=== PATIENT | female | born 1995 | race Caucasian/White ===

== ENCOUNTER 2018-06-09 12:58 | Outpatient (CLI) | payer BC | END 2018-06-09 15:10 | disposition home or self-care (01) | LOC: OBT 12:58 → L-D 12:58 → OBT 15:10 | DX: O36.8130 Decreased fetal movements, third trimester, not applicable or unspecified (principal); Z3A.36 36 weeks gestation of pregnancy | CPT/HCPCS: 76818 ==

== ENCOUNTER 2018-07-02 19:55 | Inpatient (IN) | payer BC ==
[2018-07-02] MEDS ORDERED: IBUPROFEN 600 MG TAB PO (20:30)
[2018-07-02] MEDS ORDERED: OXYTOCIN 30 UNITS/LR 500 ML IV (20:30)
[2018-07-02] MEDS ORDERED: BUTORPHANOL 2 MG INJ IV (20:30)
[2018-07-02] MEDS ORDERED: LIDOCAINE 1% (MPF) 30 ML INJ INJ (20:30)
[2018-07-02] MEDS: LACTATED RINGER'S 1,000 ML IV (20:39)
[2018-07-02 20:50] LABS: ADD MAN DIFF? NO
[2018-07-02 20:53] LABS: BASOPHIL # 0.1 10^3/ul (0.0-0.1); BASOPHILS % 0.6 % (0.0-2.0); EOSINOPHILS # 0.1 10^3/ul (0.0-0.5); HEMATOCRIT 36.4 % (37.0-47.0); HEMOGLOBIN 12.1 g/dl (12.0-16.0); LYMPHOCYTES # 1.5 10^3/ul (0.8-2.9); LYMPHOCYTES % 17.2 % (15.0-51.0); MEAN CORPUSCULAR HEMOGLOBIN 28.3 pg (29.0-33.0); MEAN CORPUSCULAR HGB CONC 33.2 g/dl (32.0-37.0); MEAN PLATELET VOLUME 10.9 fl (7.4-10.4); MONOCYTE # 0.6 10^3/ul (0.3-0.9); MONOCYTES % 6.8 % (0.0-11.0); NEUTROPHIL # 6.6 10^3/ul (1.6-7.5); NEUTROPHILS % 73.4 % (39.0-77.0); PLATELET COUNT 319 10^3/UL (140-415); RED BLOOD COUNT 4.28 10^6/ul (4.20-5.40); RED CELL DISTRIBUTION WIDTH 13.3 % (11.5-14.5)
[2018-07-02 21:12] LABS: INR 0.97
[2018-07-02 21:13] LABS: PARTIAL THROMBOPLASTIN TIME 30.9 Sec (23.0-35.0)
[2018-07-02 21:38] LABS: HEPATITIS B SURFACE ANTIGEN NEGATIVE (NEGATIVE)
[2018-07-02] MEDS ORDERED: MISOPROSTOL 100 MCG TAB VAG (22:00)
[2018-07-02] MEDS: MISOPROSTOL 50 MCG CAPSULE PO (22:33)
[2018-07-02] MEDS: AMPICILLIN 2 GM/NS (PMX) 100 ML IV (22:33)
[2018-07-03] MEDS ORDERED: MISOPROSTOL 50 MCG CAPSULE PO (01:00)
[2018-07-03] MEDS: AMPICILLIN 1 GM/NS (PMX) 50 ML IV ×6 (02:40→20:30)
[2018-07-03] MEDS: MISOPROSTOL 50 MCG CAPSULE PO ×6 (02:40→21:00)
[2018-07-03] MEDS: LACTATED RINGER'S 1,000 ML IV ×4 (05:30→20:06)
[2018-07-03] MEDS ORDERED: FENTAnyl 2MCG/ML-ROPIV 0.2% 100 ML (09:25)
[2018-07-03] MEDS ORDERED: HYDROmorphONE 1 MG/5 ML IV SYRINGE IV ×3 (10:00)
[2018-07-03] MEDS ORDERED: KETOROLAC 30 MG INJ IV ×2 (10:00→19:00)
[2018-07-03] MEDS ORDERED: DIPHENHYDRAMINE 50 MG INJ IV ×2 (10:00→19:00)
[2018-07-03] MEDS ORDERED: ONDANSETRON 4 MG INJ IV ×2 (10:00→19:00)
[2018-07-03] MEDS ORDERED: FENTAnyl 50 MCG/ML VIAL IV ×2 (10:00)
[2018-07-03] MEDS: OXYTOCIN 30 UNITS/LR 500 ML IV ×3 (10:18→22:19)
[2018-07-03 18:15] LABS: RAPID PLASMA REAGIN NONREACTIVE (NR)
[2018-07-03] MEDS ORDERED: HYDROmorphONE 0.5 MG/0.5 ML SYG IV ×2 (19:00)
[2018-07-03] MEDS ORDERED: ZOLPIDEM 5 MG TAB PO (19:00)
[2018-07-03] MEDS ORDERED: NALOXONE (0.4 MG/ML) INJ IV (19:00)
[2018-07-03] MEDS: FENTAnyl 2MCG/ML-ROPIV 0.2% 100 ML BAG EPI (19:09)
[2018-07-03] MEDS ORDERED: LIDOCAINE 1% (MPF) 30 ML INJ (20:03)
[2018-07-03] MEDS ORDERED: MINERAL OIL LIGHT 10 ML VIAL TOP (22:00)
[2018-07-03] MEDS: METHYLERGONOVINE 0.2 MG INJ IM (22:15)
[2018-07-03] MEDS: MISOPROSTOL 200 MCG TAB PR (22:16)
[2018-07-03] MEDS: CARBOPROST 250 MCG INJ IM (22:17)
[2018-07-04] MEDS ORDERED: HYDROCODONE/APAP (5/325) TAB PO (01:30)
[2018-07-04] MEDS ORDERED: OXYTOCIN 30 UNITS/LR 500 ML IV (01:30)
[2018-07-04] MEDS ORDERED: CARBOPROST 250 MCG INJ IM (01:30)
[2018-07-04] MEDS ORDERED: METHYLERGONOVINE 0.2 MG INJ IM (01:30)
[2018-07-04] MEDS ORDERED: MISOPROSTOL 200 MCG TAB PR (01:30)
[2018-07-04] MEDS ORDERED: ACETAMINOPHEN 325 MG TAB PO (01:30)
[2018-07-04] MEDS: LACTATED RINGER'S 1,000 ML IV* (02:30)
[2018-07-04] MEDS: WITCH HAZEL/GLYCERIN PAD PR (02:30)
[2018-07-04] MEDS: BENZOCAINE 20% 56 ML SPRAY TOP (02:31)
[2018-07-04] MEDS: DIBUCAINE 1% 30 GM OINT TOP (02:31)
[2018-07-04] MEDS: IBUPROFEN 600 MG TAB PO ×4 (05:35→23:46)
[2018-07-04 07:54] LABS: ADD MAN DIFF? NO
[2018-07-04 07:59] LABS: WHITE BLOOD COUNT 15.3 10^3/ul (4.8-10.8)
[2018-07-04 07:59] LABS: BASOPHILS % 0.2 % (0.0-2.0); EOSINOPHILS % 0.1 % (0.0-7.0); HEMATOCRIT 38.4 % (37.0-47.0); HEMOGLOBIN 12.7 g/dl (12.0-16.0); MEAN CORPUSCULAR HEMOGLOBIN 28.1 pg (29.0-33.0); MEAN CORPUSCULAR HGB CONC 33.1 g/dl (32.0-37.0); MONOCYTE # 1.3 10^3/ul (0.3-0.9); MONOCYTES % 8.4 % (0.0-11.0); NEUTROPHIL # 11.9 10^3/ul (1.6-7.5); NEUTROPHILS % 77.8 % (39.0-77.0); PLATELET COUNT 280 10^3/UL (140-415); RED BLOOD COUNT 4.52 10^6/ul (4.20-5.40); RED CELL DISTRIBUTION WIDTH 13.5 % (11.5-14.5)
[2018-07-04] MEDS: PRENATAL VITAMIN PO (08:57)
[2018-07-04] MEDS: SENNA/DOCUSATE NA (8.6MG/50MG) TAB PO ×2 (09:00→21:00)
[2018-07-05] MEDS: IBUPROFEN 600 MG TAB PO ×2 (05:44→12:28)
[2018-07-05] MEDS: DIPHTH/TET/ACEL PERTUSS (ADULT) 0.5 ML VIAL IM* (09:00)
[2018-07-05] MEDS: SENNA/DOCUSATE NA (8.6MG/50MG) TAB PO (09:00)
[2018-07-05] MEDS: PRENATAL VITAMIN PO (09:16)
[2018-07-05 10:08] LABS: ADD MAN DIFF? NO
[2018-07-05 10:10] LABS: BASOPHILS % 0.5 % (0.0-2.0); EOSINOPHILS # 0.2 10^3/ul (0.0-0.5); EOSINOPHILS % 1.7 % (0.0-7.0); HEMATOCRIT 35.6 % (37.0-47.0); HEMOGLOBIN 11.5 g/dl (12.0-16.0); LYMPHOCYTES % 22.3 % (15.0-51.0); MEAN CORPUSCULAR HEMOGLOBIN 27.8 pg (29.0-33.0); MEAN CORPUSCULAR HGB CONC 32.3 g/dl (32.0-37.0); MEAN PLATELET VOLUME 11.2 fl (7.4-10.4); MONOCYTE # 0.7 10^3/ul (0.3-0.9); MONOCYTES % 8.1 % (0.0-11.0); NEUTROPHIL # 5.9 10^3/ul (1.6-7.5); NEUTROPHILS % 66.5 % (39.0-77.0); PLATELET COUNT 290 10^3/UL (140-415); RED BLOOD COUNT 4.14 10^6/ul (4.20-5.40); RED CELL DISTRIBUTION WIDTH 13.9 % (11.5-14.5)
[2018-07-05 10:10] LABS: WHITE BLOOD COUNT 8.8 10^3/ul (4.8-10.8)
== END 2018-07-05 18:34 | disposition home or self-care (01) | DRG 807 ==
LOC: PP1 07-04 00:35 → L-D 19:55
PROVIDERS: Obstetrics & Gynecology
PROC: 10E0XZZ Delivery of Products of Conception, External Approach (ICD-10-PCS; principal; 2018-07-03)
PROC: 10D07Z8 Extraction of Products of Conception, Other, Via Natural or Artificial Opening (ICD-10-PCS; 2018-07-03)
DX: O75.89 Other specified complications of labor and delivery (principal); Z37.0 Single live birth; O99.824 Streptococcus B carrier state complicating childbirth; O70.0 First degree perineal laceration during delivery; Z3A.40 40 weeks gestation of pregnancy
CPT/HCPCS: 62319; 76815; 85025; 85610; 85730; 86592; 86850; 86900; 86901; 87340; 90715